=== PATIENT | male | born 1965 | race Caucasian/White ===

== ENCOUNTER 2023-05-09 19:52 | Inpatient (IN) | payer OTHER, SELFPAY ==
[2023-05-09 19:54] VITALS: BP 161/110; PULSE 77; RESP 16; TEMP 36.2; O2SAT 97; BMI 31.5
[2023-05-09 22:12] VITALS: BP 159/99; PULSE 73; RESP 16; O2SAT 97
[2023-05-09 22:30] LABS: Absolute Lymphocyte Count 3.76 X10^3/uL (0.83-4.51); Absolute Neutrophil Count 3.4 X10^3/uL (2.0-7.7); Basophil# 0.02 X10^3/uL; Basophil% 0.3 % (0-1); Eosinophil# 0.14 X10^3/uL; Eosinophils% 1.8 % (0-5); Hematocrit 44.9 % (40-54); Hemoglobin 15.1 g/dL (13.0-16.5); Lymphocyte # 3.76 X10^3/ul (0.83-4.51); Mean Corp Hgb Conc 33.6 g/dL (32-36); Mean Corpuscular Volume 89.1 fL (80-94); Mean Platelet Vol. 9.8 fl (6.2-12.0); Monocyte% 6.4 % (0-10); NRBC Flagged by Analyzer 0 % (0-5); Neutrophil # 3.39 X10^3/uL (2.7-7.7); Neutrophil % 43.1 % (47-70); Platelet Count 300 K/mm3 (150-450); RBC Distribution Width CV 13.6 % (11.6-14.6); Red Blood Count 5.04 M/mm3 (4.6-6.2); White Blood Count 7.8 K/mm3 (4.4-11.0)
--- NOTE | 2023-05-09 22:36 | EDS_ITS ---
HPI History of Present Illness Chief Complaint: Substance Abuse Narrative Narrative: Patient has a history of alcoholism. He has a history of liver cirrhosis, he has a transplant liver 2 years ago and he has been sober for 2 years although a few months ago he started drinking fireball's from a gas station. He tells me he messed up and wants detox. He has no other symptoms he did drink today. PFSH PFSH Medical History Alcohol abuse Home Medications fluorouracil 5 % topical cream 1 applic topical 05/09/23 [History Last Taken Unknown] ketoconazole 2 % topical cream 1 applic topical BID PRN ECZEMA 05/09/23 [History Last Taken Unknown] magnesium oxide 400 mg (241.3 mg magnesium) tablet 800 mg PO DAILY 05/09/23 [History Last Taken Unknown] mycophenolate mofetil 250 mg capsule 250 mg PO BID 05/09/23 [History Last Taken Unknown] omeprazole 20 mg capsule,delayed release 20 mg PO DAILY 05/09/23 [History Last Taken Unknown] tacrolimus 1 mg capsule, immediate-release 3 mg PO BID 05/09/23 [History Last Taken Unknown] Allergy/AdvReac Type Severity Reaction Status Date / Time Sulfa (Sulfonamide Allergy Mild Rash Verified 05/09/23 21:57 Antibiotics) Surgical History (Updated 05/09/23 @ 22:[address] Stanton Ely MD) History of bilateral knee replacement Liver transplant recipient Social History Smoking Status: Never smoker ROS ROS ED ROS Narrative Past medical history: Reviewed Medications: Reviewed Social history: Noncontributory Review of systems: All systems negative except as indicated General: No fever Eyes: No visual changes ENT: No upper airway congestion, normal voice Neck: No neck pain Cardiovascular: No chest pain Respiratory: No shortness of breath or cough Gastrointestinal: No abdominal pain, nausea vomiting or diarrhea Genitourinary: No dysuria Musculoskeletal: Denies myalgias no difficulty with ambulation Skin: No rash Neurological: No memory loss, confusion or any focal weakness EXAM Physical Exam Narrative Exam Narrative: Physical exam General: Well nourished, Well developed, No Acute Distress Head: Normocephalic, Atraumatic Eyes: Conjunctiva not pale ENT: Moist mucous membranes Neck: Supple, Nontender, No lymphadenopathy Cardiovascular: Regular rate, Regular rhythm Respiratory: No distress, CTA bilaterally Abdomen: Soft, Nontender, Nondistended Back: Nontender, Normal Inspection. Negative for: CVA tenderness Extremities: Nontender, No edema Skin: Normal color, No rash Neurological: Alert, Normal Strength, Normal Sensation Psychological: Slightly depressed. He seems remorseful. Const Vital Signs: 05/09/23 19:54 05/09/23 22:12 Temperature 97.1 F L Temperature Source Temporal Pulse Rate 77 73 Respiratory Rate 16 16 Blood Pressure 161/110 H 159/99 H Blood Pressure Mean 127 119 Pulse Ox 97 97 Oxygen Delivery Method Room Air Room Air MDM MDM MDM Narrative Medical decision making narrative: Patient will be medically cleared at this time he appears well at this time he is not tachycardic or he has any obvious withdrawal symptoms. I will attempt to admit him. Lab Data Labs: Laboratory Results - last 24 hr 05/09/23 22:10 WBC 7.8 RBC 5.04 Hgb 15.1 Hct 44.9 MCV 89.1 MCH 30.0 MCHC 33.6 RDW Std Deviation 44.0 H RDW Coeff of Darin 13.6 Plt Count 300 MPV 9.8 Immature Gran % (Auto) 0.400 Neut % (Auto) 43.1 L Lymph % (Auto) 48.0 H [place] % (Auto) 6.4 Eos % (Auto) 1.8 Baso % (Auto) 0.3 Absolute Neuts (auto) 3.4 Absolute Lymphs (auto) 3.76 Nucleated RBC % 0 Discharge Plan Triage Chief Complaint: Substance Abuse ED Provider: Stanton Ely Dx/Rx/DC Orders Clinical Impression: Alcohol addiction, Cirrhosis of liver, Liver transplanted Prescriptions: No Action fluorouracil 5 % cream 1 applic TOPICAL Patient Comments: APPLY TOPICALLY TO THE AFFECTED AREA TWICE DAILY magnesium oxide 400 mg (241.3 mg magnesium) tablet 800 mg PO DAILY ketoconazole 2 % cream 1 applic TOPICAL BID PRN (Reason: ECZEMA) Patient Comments: APPLY TOPICALLY TO THE AFFECTED AREA TWICE DAILY omeprazole 20 mg capsule,delayed release(DR/EC) 20 mg PO DAILY tacrolimus 1 mg capsule 3 mg PO BID Patient Comments: TAKE 3 CAPSULES BY MOUTH TWICE DAILY mycophenolate mofetil 250 mg capsule 250 mg PO BID Patient Comments: TAKE 2 CAPSULES BY MOUTH TWICE DAILY Primary Care Provider: KIARRA KENYON Referrals: KIARRA KENYON [Other] Disposition Disposition: Acute Care Hospital [facility]
[2023-05-09 22:47] LABS: AST(SGOT) 23 U/L (15-37); Alanine Aminotransfer ALT/SGPT 27 U/L (16-61); Albumin, Serum 3.7 g/dL (3.2-5.0); Alkaline Phosphatase 110 U/L (45-117); Anion Gap 9 (5-15); BUN 19 mg/dL (7-18); BUN/Creat Ratio 13.6 RATIO (10-20); Calcium,Total 8.5 mg/dL (8.5-10.1); Chloride 109 mmol/L (98-107); EST Glomerular Filtration Rate 55 mL/min (>60); Est Glom Filt Rate - Afr Amer 66 mL/min (>60); Estimated Creatinine Clearance 57.94 ml/min; Globulin 3.8 g/dL (2.2-4.2); Glucose 98 mg/dL (74-106); Potassium 3.6 mmol/L (3.5-5.1); Protein, Total 7.5 g/dL (6.4-8.2); Sodium Level 140 mmol/L (136-145)
[2023-05-09 22:57] VITALS: BP 140/94; PULSE 97; RESP 20; TEMP 36.7; O2SAT 100
--- NOTE | 2023-05-09 22:57 | HP.PCM.HOS_ITS ---
HPI - General General Date of Admission: 05/09/23 Date of Service: 05/09/23 Chief Complaint: EtOH abuse with request for detoxification. HPI Narrative The patient is a 58 y/o M w/ PMHx: EtOH abuse (sober x 2 years since liver transplant, started drinking again ~ 2 months, 1 pint fireball QD/QOD), GERD, Hx ESLD s/p liver transplant ~ 2 years prior at [facility] who presents to the [facility] ED on 05/09/23 with history of attempts to decrease by self however he has been unsuccessful secondary to alcohol withdrawal symptoms with mild tremors, nausea and tactile disturbances when he attempts with significant interest in obtaining sober status especially given his liver transplant prompting eventual ED evaluation. He denies any specific overt catalyst for his intake. He notes that his does not drink. Work-up in the ED included T97.1, heart 77, BP 161/110, respiratory rate 16, 97% room air, CBC with WBC 7.8, hemoglobin 15.1, platelet 300 without marked shift, CMP with chloride 109, BUN/creatinine 19/1.40, hepatic profile unremarkable, ethyl alcohol 176, urine drug screen pending upon request evaluation of patient. [facility] Medical History (Updated 05/09/23 @ 23:[address] Madison Weiss MD) Alcohol abuse GERD (gastroesophageal reflux disease) History of cirrhosis of liver Home Medications fluorouracil 5 % topical cream 1 applic topical 05/09/23 [History Last Taken Unknown] ketoconazole 2 % topical cream 1 applic topical BID PRN ECZEMA 05/09/23 [History Last Taken Unknown] magnesium oxide 400 mg (241.3 mg magnesium) tablet 800 mg PO DAILY 05/09/23 [History Last Taken Unknown] mycophenolate mofetil 250 mg capsule 250 mg PO BID 05/09/23 [History Last Taken Unknown] omeprazole 20 mg capsule,delayed release 20 mg PO DAILY 05/09/23 [History Last Taken Unknown] tacrolimus 1 mg capsule, immediate-release 3 mg PO BID 05/09/23 [History Last Taken Unknown] Allergy/AdvReac Type Severity Reaction Status Date / Time Sulfa (Sulfonamide Allergy Mild Rash Verified 05/09/23 21:57 Antibiotics) Family History (Updated 05/09/23 @ 22:[address] Madison Weiss MD) Mother Hypertension Cerebral hemorrhage Father Hypertension COPD (chronic obstructive pulmonary disease) Alcohol abuse Surgical History (Updated 05/09/23 @ 22:[address] Madison Weiss MD) History of bilateral knee replacement Liver transplant recipient Social History (Updated 05/09/23 @ 22:[address] Madison Weiss MD) household members: spouse Smoking Status: Never smoker alcohol intake: current alcohol intake frequency: 3 or more drinks per day details: ~ 2 month up to 1 pint fireball daily/QOD substance use type: does not use ROS ROS Narrative Admission Review of Systems: CONSTITUTIONAL: No weight loss, fever, chills, + weakness or fatigue. HEENT: Eyes: No visual loss, blurred vision, double vision or yellow sclerae. Ears, Nose, Throat: No hearing loss, sneezing, congestion, runny nose or sore throat. SKIN: No rash or itching, lesions, wounds. CARDIOVASCULAR: No chest pain, chest pressure or chest discomfort, palpitations, edema, orthopnea, syncopal events. RESPIRATORY: No shortness of breath, cough or sputum, wheezing, hemoptysis. GASTROINTESTINAL: + anorexia, nausea with withdrawal symptoms. Currently none nor any vomiting or diarrhea, abdominal pain, melena, BRBPR. GENITOURINARY: No dysuria, frequency, urgency or retention. NEUROLOGICAL: + tremors/tactile disturbances with withdrawal, currently none. No headache, dizziness, syncope, paralysis, ataxia, numbness or tingling in the ex tremities, focal weakness, change in bowel or bladder control, seizure. MUSCULOSKELETAL: No muscle, back pain, joint pain or stiffness. HEMATOLOGIC: No anemia, bleeding or bruising. LYMPHATICS: No enlarged nodes. No history of splenectomy. PSYCHIATRIC: No history of depression or anxiety. ENDOCRINOLOGIC: No reports of sweating, cold or heat intolerance. No polyuria or polydipsia. ALLERGIES: No history of asthma, hives, eczema or rhinitis. Vital Signs Vital Signs Vital Signs: 05/09/23 19:54 05/09/23 22:12 Temperature 97.1 F L Temperature Source Temporal Pulse Rate 77 73 Respiratory Rate 16 16 Blood Pressure 161/110 H 159/99 H Blood Pressure Mean 127 119 Pulse Ox 97 97 Oxygen Delivery Method Room Air Room Air Weight Weight: 220 lb Body Mass Index (BMI) 31.5 Physical Exam Narrative Physical Examination: General: Awake, alert, oriented x 3 and cooperative, seated upright in the ED bed, fatigued, denies any current severe withdrawal symptoms. Skin: Mildly flushed color, normal turgor, no icterus, no cyanosis. HEENT: AT/NC, EOMI, PERRLA, dry MM, no carotid bruits or JVD noted. Lungs: CTA bilaterally, moderate effort, mild decrease BL bases, no rales, ronchi or wheezing. Heart: Mildly tachycardic with regular rhythm; no gallop, rub audible. Abdomen: Soft, NTTP, ND, normal BS, status post liver transplant status of note. Extremities: No cyanosis, clubbing, or edema. Neurological: Patient awake, alert, oriented as noted, cognitive function intact; pupils equally reactive to light and accommodation, cranial nerves II- XII grossly normal, moving all 4 extremities, no focal deficits, denies any current tactile disturbances and no obvious tremors, strength mildly global dec reased. Psychiatric: Affect appears flat, fatigued, no acute evidence of depressive or anxiety feelings. Results Lab / Micro Data 05/09/23 22:10 05/09/23 22:10 Labs: Laboratory Results - last 24 hr 05/09/23 22:10: WBC 7.8, RBC 5.04, Hgb 15.1, Hct 44.9, MCV 89.1, MCH 30.0, MCHC 33.6, RDW Std Deviation 44.0 H, RDW Coeff of Darin 13.6, Plt Count 300, MPV 9.8, Immature Gran % (Auto) 0.400, Neut % (Auto) 43.1 L, Lymph % (Auto) 48.0 H, [place] % (Auto) 6.4, Eos % (Auto) 1.8, Baso % (Auto) 0.3, Absolute Neuts (auto) 3.4, Absolute Lymphs (auto) 3.76, Nucleated RBC % 0, Sodium 140, Potassium 3.6, Chloride 109 H, Carbon Dioxide 22.0, Anion Gap 9, BUN 19 H, Creatinine 1.40 H, Estim Creat Clear Calc 57.94, Est GFR (MDRD) Af Amer 66, Est GFR (MDRD) Non-Af 55 L, BUN/Creatinine Ratio 13.6, Glucose 98, Calcium 8.5, Total Bilirubin 1.00, AST 23, ALT 27, Alkaline Phosphatase 110, Total Protein 7.5, Albumin 3.7, Globulin 3.8, Albumin/Globulin Ratio 1.0 Assessment & Plan Assessment/Plan (1) Alcohol withdrawal: PLAN: Plan The patient is a 58 y/o M w/ PMHx: EtOH abuse (sober x 2 years since liver transplant, started drinking again ~ 2 months, 1 pint fireball QD/QOD), GERD, Hx ESLD s/p liver transplant ~ 2 years prior at [facility] who presents to the [facility] ED on 05/09/23 with history of attempts to decrease by self however he has been unsuccessful prompting ED evaluation for alcohol withdrawal treatment. #1. Acute EtOH Withdrawal: Will admit to [facility], routine labs obtained in the ED upon presentation with pending UDS. Given interest in sobriety, will initiate and continue on protocol with taper course of ativan given interactions of phenobarbital with his transplant medications, as needed gabapentin, Catapres, Bentyl, Vistaril, IV fluids, IV antiemetics, Tylenol as needed for pain. Will consult Case management for assistance for transition to next level of rehabil itation care. Mag, phos pending. Maintain on CIWA protocol concurrently. #2. Elevated BP without hypertensive diagnosis: Patient with elevated BP upon presentation possibly related with acute presentation #1, will continue to closely monitor and add regimen if appropriate, as needed IV hydralazine in interim. #3. History ESLD with history of alcoholic cirrhotic liver disease: Status post renal transplant status, will continue patient home tacrolimus as well as mycophenolate regimen, from current list not on any chronic prophylactic Bactrim with rash listed as allergy of note, encouraged patient to update his transplant team. #4. GERD: We will continue patient home PPI. #5. DVT prophylaxis: Low risk, encourage ambulation. Charges/Coding Visit Charges Inpatient E&M: 49687 Init Hosp L2
[2023-05-09 23:22] LABS: Magnesium 1.6 mg/dL (1.6-2.6); Phosphorus 2.4 mg/dL (2.5-4.9)
[2023-05-09 23:32] VITALS: BMI 32.5
[2023-05-09] MEDS: Lactated Ringers 1,000 ML 125 ML IV (23:53)
[2023-05-09 23:55] VITALS: BP 147/90; PULSE 65; RESP 17; TEMP 36.4; O2SAT 98
[2023-05-10] VITALS (7 sets, daily range): BP systolic 139–163; BP diastolic 83–110; PULSE 73–90; RESP 16–18; TEMP 36.7–37.1; O2SAT 95–99
[2023-05-10] MEDS: LORazepam 1 MG Tablet PO ×6 (00:03→20:17)
[2023-05-10] MEDS: traZODone 100 MG Tablet PO ×2 (00:04→20:18)
[2023-05-10] MEDS: hydrALAZINE 20 MG/ML Vial 10 MG IV (04:10)
--- NOTE | 2023-05-10 07:31 | PN.HOSP_ITS ---
Reason for Visit Reason for Visit: Diagnoses Alcohol use, unspecified with withdrawal, unspecified (05/09/23) Objective Data Objective Data Vital Signs: Vital Signs Temp Pulse Resp BP Pulse Ox O2 Del Method 98.2 F 77 17 163/110 H 95 Room Air 05/10/23 04:05 05/10/23 04:10 05/10/23 04:05 05/10/23 04:10 05/10/23 04:05 05/10/23 04:05 Oxygen Delivery Method Room Air Weight: 227 lb 1.218 oz Body Mass Index (BMI) 32.5 Intake & Output: Intake and Output for Last 24 Hours 05/08/23 05/09/23 05/10/23 23:59 23:59 23:59 Intake Total 260 / 260 Balance 260 / 260 Lab / Micro Data 05/09/23 22:10 05/09/23 22:10 Labs: Laboratory Results - last 24 hr 05/09/23 22:10: WBC 7.8, RBC 5.04, Hgb 15.1, Hct 44.9, MCV 89.1, MCH 30.0, MCHC 33.6, RDW Std Deviation 44.0 H, RDW Coeff of Darin 13.6, Plt Count 300, MPV 9.8, Immature Gran % (Auto) 0.400, Neut % (Auto) 43.1 L, Lymph % (Auto) 48.0 H, [place] % (Auto) 6.4, Eos % (Auto) 1.8, Baso % (Auto) 0.3, Absolute Neuts (auto) 3.4, Absolute Lymphs (auto) 3.76, Nucleated RBC % 0, Sodium 140, Potassium 3.6, Chloride 109 H, Carbon Dioxide 22.0, Anion Gap 9, BUN 19 H, Creatinine 1.40 H, Estim Creat Clear Calc 57.94, Est GFR (MDRD) Af Amer 66, Est GFR (MDRD) Non-Af 55 L, BUN/Creatinine Ratio 13.6, Glucose 98, Calcium 8.5, Phosphorus 2.4 L, Magnesium 1.6, Total Bilirubin 1.00, AST 23, ALT 27, Alkaline Phosphatase 110, Total Protein 7.5, Albumin 3.7, Globulin 3.8, Albumin/Globulin Ratio 1.0, Ethyl Alcohol 176.0 Physical Exam Narrative Seen and examined. Patient has history of alcoholic cirrhosis status post liver transplant. He was sober then started drinking alcohol 1 month back. Patient has insight and knows the consequences of alcohol intact with loss of liver allograft. Physical exam General: Alert, Oriented x3, Cooperative HEENT: Atraumatic, PERRLA, EOMI, Normocephalic Oral: Oral mucosa dry. No Gingival or Mucosal Lesions/ Ulcerations Neck: Supple, No JVD, Negative Carotid Bruits Lungs: Air entry diminished in bilateral lung bases. No crepitation/rhonchi Cardiovascular: Regular rate, Regular Rhythm, Normal S1, Normal S2, No murmurs Abdomen: By costal margin surgical scar previous liver transplant surgery. Bowel Sounds Present, Soft, Non Tender, Non-Distended : No renal angle tenderness. No suprapubic tenderness. Extremities: No edema, Capillary Refill Less than 3 Seconds Skin: No rashes, No breakdown Musculoskeletal: No Tenderness to Palpation of Joints or Extremities Neurological: Cranial nerves II-XII grossly intact, DTR 2+/4. No acute focal neurological deficit. Psych/Mental Status: Flat affect. Assessment & Plan Assessment/Plan (1) Alcohol withdrawal: QUALIFIERS: Complication of substance-induced condition: uncomplicated Qualified Code(s): F10.930 - Alcohol use, unspecified with withdrawal, uncomplicated PLAN: Plan The patient is a 58 y/o M w/ PMHx: EtOH abuse (sober x 2 years since liver transplant, started drinking again ~ 2 months, 1 pint fireball QD/QOD), GERD, Hx ESLD s/p liver transplant ~ 2 years prior at [facility] who presents to the [facility] ED on 05/09/23 #1. Acute EtOH Withdrawal: The patient is admitted to [facility]. Patient on phenobarbital based order set along with other adjunctive medications as needed for alcohol withdrawal symptom control. CIWA monitor. b2b sales manager consulted. K3.6. Low normal. Hypophosphatemia. Serum magnesium normal. Serum alcohol level 176. U tox screen negative. Discussed with the case making machine operator David to update the [facility] psychotherapist social worker/liver transplant team about relapse in alcohol intake Is started on Neutra-Phos. #2. Elevated BP without hypertensive diagnosis: Patient with elevated BP upon presentation possibly related with acute presentation #1, will continue to closely monitor and add regimen if appropriate, as needed IV hydralazine in interim. #3. History ESLD with history of alcoholic cirrhotic liver disease: Status post renal transplant status, will continue patient home tacrolimus as well as mycophenolate regimen, BUNs/creatinine 19/1.4. ALT AST alkaline phosphatase which total bilirubin normal limit. Serum albumin 3.7. Monitor liver functions Kidney function. #4. GERD: continue patient home PPI. #5. DVT prophylaxis: Low risk, encourage ambulation. Charges/Coding Visit Charges Inpatient E&M: 53000 Subs Hosp L2
[2023-05-10] MEDS: Thiamine Hydrochloride 100 MG Tablet PO (08:12)
[2023-05-10] MEDS: Pantoprazole Sodium 20 MG Tablet PO (08:12)
[2023-05-10] MEDS: Folic Acid 1 MG Tablet PO (08:12)
[2023-05-10] MEDS: Magnesium Chloride 64 MG Delay Rel.Tablet 128 MG PO ×2 (08:12→20:18)
[2023-05-10] MEDS: 0.9% Saline Lock 10 ML Syringe IV (08:12)
[2023-05-10] MEDS: Tacrolimus Anhydrous 1 MG Capsule 3 MG PO ×2 (08:13→20:19)
[2023-05-10] MEDS: Mycophenolate Mofetil 250 MG Capsule PO ×2 (08:13→20:18)
[2023-05-10 08:53] LABS: Bacteria 0 SEEN /hpf (None Seen); Mucous, Urine 0 SEEN /hpf (<or=2+); Red Blood Cells-Urine 0 SEEN /hpf (0-5); Squamous Epithelial Cells - UA 0 SEEN /hpf (0-5); White Blood Cells 0 SEEN /hpf (0-5)
[2023-05-10 09:01] LABS: Color, Urine Yellow (Yellow); Glucose, Dipstick Normal (Normal); Ketone-Dipstick Negative (Negative); Leukocyte Esterase-Dipstick Negative /ul (Negative); Nitrite-Dipstick Negative (Negative); Occult Blood-Urine Negative /ul (Negative); Protein-Dipstick 15 mg/dl (Negative); Specific Gravity, Urine 1.025 (1.002-1.030); Urine Bilirubin Dipstick Negative (Negative); Urine Clarity Clear (Clear); Urine Urobilinogen Normal (Normal)
[2023-05-10 09:12] LABS: Amphetamine Urine VISTA NEGATIVE (<1000 ng/mL); Barbiturate Urine VISTA NEGATIVE (< 200 ng/mL); Benzodiazepine Urine VISTA NEGATIVE (< 200 ng/mL); Cocaine Urine VISTA NEGATIVE (< 300 ng/mL); Ecstacy Urine VISTA NEGATIVE (< 500 ng/mL); Methadone Urine VISTA NEGATIVE (< 300 ng/mL); PCP Urine VISTA NEGATIVE (< 25 ng/mL); THC Urine VISTA NEGATIVE (< 50 ng/mL); Vista UDS pH Range 4
[2023-05-10] MEDS: Na Biphos/Potassium Phosphate PACKET 1 PACKET PO ×2 (16:51→20:19)
[2023-05-11] VITALS (8 sets, daily range): BP systolic 115–164; BP diastolic 71–95; PULSE 55–92; RESP 16–18; TEMP 36.4–37; O2SAT 95–98
[2023-05-11] MEDS: LORazepam 1 MG Tablet PO ×6 (00:34→20:30)
[2023-05-11] MEDS: Na Biphos/Potassium Phosphate PACKET 1 PACKET PO ×3 (05:01→20:32)
[2023-05-11] MEDS: hydrALAZINE 20 MG/ML Vial 10 MG IV (05:07)
[2023-05-11] MEDS: 0.9% Saline Lock 10 ML Syringe IV (05:07)
[2023-05-11 06:18] LABS: Absolute Lymphocyte Count 2.28 X10^3/uL (0.83-4.51); Absolute Neutrophil Count 3.3 X10^3/uL (2.0-7.7); Basophil# 0.01 X10^3/uL; Basophil% 0.2 % (0-1); Eosinophil# 0.19 X10^3/uL; Eosinophils% 3.1 % (0-5); Hematocrit 40.5 % (40-54); Hemoglobin 13.6 g/dL (13.0-16.5); Lymphocyte # 2.28 X10^3/ul (0.83-4.51); Lymphocyte % 36.7 % (19-41); Mean Corp Hgb Conc 33.6 g/dL (32-36); Mean Corpuscular Hgb 30.3 pg (27.0-32.0); Mean Corpuscular Volume 90.2 fL (80-94); Mean Platelet Vol. 10.2 fl (6.2-12.0); Monocyte# 0.44 X10^3/uL; Monocyte% 7.1 % (0-10); NRBC Flagged by Analyzer 0 % (0-5); Neutrophil # 3.28 X10^3/uL (2.7-7.7); Neutrophil % 52.7 % (47-70); Platelet Count 236 K/mm3 (150-450); RBC Distribution Width CV 13.3 % (11.6-14.6); RBC Distribution Width SD 44.7 fl (35.1-43.9); Red Blood Count 4.49 M/mm3 (4.6-6.2); White Blood Count 6.2 K/mm3 (4.4-11.0)
[2023-05-11 06:52] LABS: ALB/GLOB Ratio 0.9 RATIO (0.9-2.4); AST(SGOT) 16 U/L (15-37); Alanine Aminotransfer ALT/SGPT 22 U/L (16-61); Albumin, Serum 2.9 g/dL (3.2-5.0); Alkaline Phosphatase 100 U/L (45-117); Anion Gap 5 (5-15); BUN 25 mg/dL (7-18); BUN/Creat Ratio 20.3 RATIO (10-20); Calcium,Total 8.2 mg/dL (8.5-10.1); Chloride 110 mmol/L (98-107); Creatinine, Serum 1.23 mg/dL (0.70-1.30); EST Glomerular Filtration Rate 64 mL/min (>60); Est Glom Filt Rate - Afr Amer 77 mL/min (>60); Estimated Creatinine Clearance 65.94 ml/min; Globulin 3.3 g/dL (2.2-4.2); Glucose 111 mg/dL (74-106); Magnesium 1.7 mg/dL (1.6-2.6); Potassium 3.9 mmol/L (3.5-5.1); Protein, Total 6.2 g/dL (6.4-8.2); Sodium Level 140 mmol/L (136-145)
[2023-05-11] MEDS: Folic Acid 1 MG Tablet PO (08:31)
[2023-05-11] MEDS: Thiamine Hydrochloride 100 MG Tablet PO (08:32)
[2023-05-11] MEDS: Magnesium Chloride 64 MG Delay Rel.Tablet 128 MG PO ×2 (10:36→20:32)
[2023-05-11] MEDS: Mycophenolate Mofetil 250 MG Capsule PO ×2 (10:36→20:33)
[2023-05-11] MEDS: Tacrolimus Anhydrous 1 MG Capsule 3 MG PO ×2 (10:37→20:33)
[2023-05-11] MEDS: Pantoprazole Sodium 20 MG Tablet PO (10:37)
--- NOTE | 2023-05-11 15:19 | PN.HOSP_ITS ---
Reason for Visit Reason for Visit: Diagnoses Alcohol use, unspecified with withdrawal, uncomplicated (05/09/23) Alcohol use, unspecified with withdrawal, unspecified (05/09/23) Objective Data Objective Data Vital Signs: Vital Signs Temp Pulse Resp BP Pulse Ox O2 Del Method 97.9 F 92 16 115/71 98 Room Air 05/11/23 12:42 05/11/23 12:42 05/11/23 12:42 05/11/23 12:42 05/11/23 12:42 05/11/23 12:42 Oxygen Delivery Method Room Air Weight: 227 lb 1.218 oz Body Mass Index (BMI) 32.5 Intake & Output: Intake and Output for Last 24 Hours 05/09/23 05/10/23 05/11/23 23:59 23:59 23:59 Intake Total 2059 Balance 2059 Lab / Micro Data 05/11/23 05:50 05/11/23 05:50 Labs: Laboratory Results - last 24 hr 05/11/23 05:50: WBC 6.2, RBC 4.49 L, Hgb 13.6, Hct 40.5, MCV 90.2, MCH 30.3, MCHC 33.6, RDW Std Deviation 44.7 H, RDW Coeff of Darin 13.3, Plt Count 236, MPV 10.2, Immature Gran % (Auto) 0.200, Neut % (Auto) 52.7, Lymph % (Auto) 36.7, [place] % (Auto) 7.1, Eos % (Auto) 3.1, Baso % (Auto) 0.2, Absolute Neuts (auto) 3.3, Absolute Lymphs (auto) 2.28, Nucleated RBC % 0, Sodium 140, Potassium 3.9, Chloride 110 H, Carbon Dioxide 25.0, Anion Gap 5, BUN 25 H, Creatinine 1.23, Estim Creat Clear Calc 65.94, Est GFR (MDRD) Af Amer 77, Est GFR (MDRD) Non-Af 6 4, BUN/Creatinine Ratio 20.3 H, Glucose 111 H, Calcium 8.2 L, Phosphorus 3.0, Magnesium 1.7, Total Bilirubin 0.90, AST 16, ALT 22, Alkaline Phosphatase 100, Total Protein 6.2 L, Albumin 2.9 L, Globulin 3.3, Albumin/Globulin Ratio 0.9 Physical Exam Narrative Seen and examined. No acute issues overnight. Patient has history of alcoholic cirrhosis status post liver transplant. He was sober then started drinking alcohol 1 month back. Patient has insight and knows the consequences of alcohol intact with loss of liver allograft. Physical exam General: Alert, Oriented x3, Cooperative HEENT: Atraumatic, PERRLA, EOMI, Normocephalic Oral: Oral mucosa dry. No Gingival or Mucosal Lesions/ Ulcerations Neck: Supple, No JVD, Negative Carotid Bruits Lungs: Air entry diminished in bilateral lung bases. No crepitation/rhonchi Cardiovascular: Regular rate, Regular Rhythm, Normal S1, Normal S2, No murmurs Abdomen: By costal margin surgical scar previous liver transplant surgery. Bowel Sounds Present, Soft, Non Tender, Non-Distended : No renal angle tenderness. No suprapubic tenderness. Extremities: No edema, Capillary Refill Less than 3 Seconds Skin: No rashes, No breakdown Musculoskeletal: No Tenderness to Palpation of Joints or Extremities Neurological: Cranial nerves II-XII grossly intact, DTR 2+/4. No acute focal neurological deficit. Psych/Mental Status: Flat affect. Assessment & Plan Assessment/Plan (1) Alcohol withdrawal: QUALIFIERS: Complication of substance-induced condition: uncomplicated Qualified Code(s): F10.930 - Alcohol use, unspecified with withdrawal, uncomplicated PLAN: Plan The patient is a 58 y/o M w/ PMHx: EtOH abuse (sober x 2 years since liver transplant, started drinking again ~ 2 months, 1 pint fireball QD/QOD), GERD, Hx ESLD s/p liver transplant ~ 2 years prior at [facility] who presents to the [facility] ED on 05/09/23 #1. Acute EtOH Withdrawal: The patient is admitted to [facility]. Patient on phenobarbital based order set along with other adjunctive medications as needed for alcohol withdrawal symptom control. CIWA monitor. life sciences manager consulted. K3.6. Low normal. Hypophosphatemia. Serum magnesium normal. Serum alcohol level 176. U tox screen negative. Discussed with the case checker David to update the [facility] social work professor/liver transplant team about relapse in alcohol intake Is started on Neutra-Phos. 05/11: Serum magnesium 1.7, serum phosphorus 3.0. Potassium 3.9.Continue potassium replacement. #2. Elevated BP without hypertensive diagnosis: Patient with elevated BP upon presentation possibly related with acute presentation #1, will continue to closely monitor and add regimen if appropriate, as needed IV hydralazine in interim. #3. History ESLD with history of alcoholic cirrhotic liver disease: Status post liver transplant status, continue patient home tacrolimus as well as mycophenolate regimen, BUNs/creatinine 19/1.4. ALT AST alkaline phosphatase which total bilirubin normal limit. Serum albumin 3.7. Monitor liver functions 05/11: liver chemistry normal limit except low albumin and total protein. #4. GERD: continue patient home PPI. #5. DVT prophylaxis: Low risk, encourage ambulation. Charges/Coding Visit Charges Inpatient E&M: 61239 Subs Hosp L2
[2023-05-12] MEDS: LORazepam 1 MG Tablet PO ×4 (00:08→14:15)
[2023-05-12 02:41] VITALS: BP 150/90; PULSE 69; RESP 16; TEMP 36.7; O2SAT 96
[2023-05-12] MEDS: Na Biphos/Potassium Phosphate PACKET 1 PACKET PO (04:19)
[2023-05-12 05:44] LABS: Absolute Lymphocyte Count 2.06 X10^3/uL (0.83-4.51); Absolute Neutrophil Count 4.5 X10^3/uL (2.0-7.7); Basophil# 0.01 X10^3/uL; Basophil% 0.1 % (0-1); Eosinophil# 0.21 X10^3/uL; Eosinophils% 2.9 % (0-5); Hematocrit 40.7 % (40-54); Hemoglobin 13.2 g/dL (13.0-16.5); Lymphocyte # 2.06 X10^3/ul (0.83-4.51); Lymphocyte % 28.5 % (19-41); Mean Corp Hgb Conc 32.4 g/dL (32-36); Mean Corpuscular Hgb 29.8 pg (27.0-32.0); Mean Corpuscular Volume 91.9 fL (80-94); Mean Platelet Vol. 10.2 fl (6.2-12.0); Monocyte# 0.48 X10^3/uL; Monocyte% 6.6 % (0-10); NRBC Flagged by Analyzer 0 % (0-5); Neutrophil # 4.46 X10^3/uL (2.7-7.7); Neutrophil % 61.6 % (47-70); Platelet Count 237 K/mm3 (150-450); RBC Distribution Width CV 13.2 % (11.6-14.6); RBC Distribution Width SD 43.7 fl (35.1-43.9); Red Blood Count 4.43 M/mm3 (4.6-6.2); White Blood Count 7.2 K/mm3 (4.4-11.0)
[2023-05-12 06:19] LABS: ALB/GLOB Ratio 0.9 RATIO (0.9-2.4); AST(SGOT) 13 U/L (15-37); Alanine Aminotransfer ALT/SGPT 19 U/L (16-61); Albumin, Serum 2.8 g/dL (3.2-5.0); Alkaline Phosphatase 88 U/L (45-117); Anion Gap 4 (5-15); BUN 23 mg/dL (7-18); BUN/Creat Ratio 18.9 RATIO (10-20); Calcium,Total 8.1 mg/dL (8.5-10.1); Chloride 109 mmol/L (98-107); Creatinine, Serum 1.22 mg/dL (0.70-1.30); EST Glomerular Filtration Rate 64 mL/min (>60); Est Glom Filt Rate - Afr Amer 78 mL/min (>60); Estimated Creatinine Clearance 66.48 ml/min; Globulin 3.2 g/dL (2.2-4.2); Glucose 107 mg/dL (74-106); Potassium 4.1 mmol/L (3.5-5.1); Sodium Level 139 mmol/L (136-145)
[2023-05-12 07:52] VITALS: O2SAT 94
[2023-05-12 08:41] VITALS: BP 132/81; PULSE 62; RESP 16; TEMP 36.7; O2SAT 96
[2023-05-12] MEDS: Folic Acid 1 MG Tablet PO (08:46)
[2023-05-12] MEDS: Magnesium Chloride 64 MG Delay Rel.Tablet 128 MG PO (08:46)
[2023-05-12] MEDS: Pantoprazole Sodium 20 MG Tablet PO (08:47)
[2023-05-12] MEDS: Thiamine Hydrochloride 100 MG Tablet PO (08:47)
[2023-05-12] MEDS: Tacrolimus Anhydrous 1 MG Capsule 3 MG PO (08:47)
[2023-05-12] MEDS: Mycophenolate Mofetil 250 MG Capsule PO (08:47)
--- NOTE | 2023-05-12 10:15 | DCINST_ITS ---
Discharge Instructions Diet Discharge Diet: No restrictions Activity Discharge Activity: Return to Normal Activity Weight Bearing Status: Weight bearing as tolerated Dressing / Incision Call your doctor if you observe: Fever of 101 or Higher, Coldness, Increased Pain, Numbness or Tingling, Change in Color, Inability to urinate, Inability to have a bowel movement, Shortness of breath, Dizziness, Fainting spells, Swelling in the ankles, Chest pain, Prolonged hiccupping, Increased palpitations (irregular heartbeat) and Calf discomfort Follow Up Care When: IN 2 WEEKS Test Results: Test results from this visit will be discussed in further detail at your follow- up appointment, if applicable. Discharge Plan Admission Admit Date/Time: 05/09/23 23:05 Attending Provider: Nick Su Primary Care Provider: KIARRA KENYON Consulting Providers: Madison Weiss Discharge Orders/Prescriptions Prescriptions: New thiamine HCl (vitamin B1) [Vitamin B-1] 100 mg Tablet 100 mg PO DAILYCM Qty: 30 2RF folic acid 1 mg Tablet 1 mg PO DAILY@0800 30 Days Qty: 30 2RF Continued fluorouracil 5 % cream 1 applic TOPICAL BID PRN Patient Comments: APPLY TOPICALLY TO THE AFFECTED AREA TWICE DAILY magnesium oxide 400 mg (241.3 mg magnesium) tablet 400 mg PO DAILY ketoconazole 2 % cream 1 applic TOPICAL BID PRN (Reason: ECZEMA) Patient Comments: APPLY TOPICALLY TO THE AFFECTED AREA TWICE DAILY omeprazole 20 mg capsule,delayed release(DR/EC) 20 mg PO DAILY tacrolimus 1 mg capsule 3 mg PO BID Patient Comments: TAKE 3 CAPSULES BY MOUTH TWICE DAILY mycophenolate mofetil 250 mg capsule 250 mg PO BID Patient Comments: TAKE 2 CAPSULES BY MOUTH TWICE DAILY Referrals / Follow Up: KIARRA KENYON [Other] KIARRA KENYON [Other] Disposition Disposition (needs filled in before D/C Order can be placed): Home, Self Care
--- NOTE | 2023-05-12 12:33 | DS.PCM_ITS ---
Providers Date of Admission: 05/09/23 Date of Discharge: 05/12/23 Primary Care Physician: KIARRA KENYON Reason For Visit: ETOH WITHDRAWAL Diagnosis Discharge Diagnosis (1) Alcohol withdrawal: Status: Acute Code(s): F10.939 - Alcohol use, unspecified with withdrawal, unspecified Qualifiers: Complication of substance-induced condition: uncomplicated Qualified Code(s): F10.930 - Alcohol use, unspecified with withdrawal, uncomplicated Plan The patient is a 58 y/o M w/ PMHx: EtOH abuse (sober x 2 years since liver transplant, started drinking again ~ 2 months, 1 pint fireball QD/QOD), GERD, Hx ESLD s/p liver transplant ~ 2 years prior at [facility] who presents to the [facility] ED on 05/09/23 #1. Acute EtOH Withdrawal: The patient is admitted to [place]. Patient on phenobarbital based order set along with other adjunctive medications as needed for alcohol withdrawal symptom control. CIWA monitor. change release manager consulted. K3.6. Low normal. Hypophosphatemia. Serum magnesium normal. Serum alcohol level 176. U tox screen negative. Discussed with the rn case management David to update the [facility] social work professor/liver transplant team about relapse in alcohol intake Is started on Neutra-Phos. 05/11: Serum magnesium 1.7, serum phosphorus 3.0. Potassium 3.9.Continue potassium replacement. 05/12: Serum potassium normal. Liver chemistry shows low albumin otherwise normal limit. Patient withdrawal symptoms have resolved. Patient wants to go home. Patient was counseled to quit alcohol. #2. Elevated BP without hypertensive diagnosis: Patient with elevated BP upon presentation possibly related with acute alcohol withdrawal. 05/12: Blood pressure is in normal limits at 132/81. Follow with PCP for BP either ambulatory or home BP monitoring to diagnose hypertension. #3. History ESLD with history of alcoholic cirrhotic liver disease: Status post liver transplant status, continue patient home tacrolimus as well as mycophenolate regimen, BUNs/creatinine 19/1.4. ALT AST alkaline phosphatase which total bilirubin normal limit. Serum albumin 3.7. Monitor liver functions 05/11: liver chemistry normal limit except low albumin and total protein. #4. GERD: continue patient home PPI. #5. DVT prophylaxis: Low risk, encourage ambulation. Discharge medication reconciliation done. Discharge follow-up instructions completed. Discharge process discussed with the patient and all questions were answered to patient's satisfaction. Total time spent, exact 35 minutes on discharge meds reconciliation, examination, coordination of care with nurses and ancillary staff, review of imaging and blood test and discussion with the patient on follow-up instructions. Medications at Discharge Home Medications fluorouracil 5 % topical cream 1 applic topical BID PRN skin rash 05/09/23 ketoconazole 2 % topical cream 1 applic topical BID PRN ECZEMA 05/09/23 magnesium oxide 400 mg (241.3 mg magnesium) tablet 400 mg PO DAILY mineral 05/09/23 mycophenolate mofetil 250 mg capsule 250 mg PO BID liver transplant 05/09/23 omeprazole 20 mg capsule,delayed release 20 mg PO DAILY stomach 05/09/23 tacrolimus 1 mg capsule, immediate-release 3 mg PO BID liver transplant 05/09/23 folic acid 1 mg tablet 1 mg PO DAILY@0800 30 days #30 tabs 05/12/23 thiamine HCl (vitamin B1) 100 mg tablet (Vitamin B-1) 100 mg PO DAILYCM #30 tabs 05/12/23 Physical Exam Narrative Seen and examined. No acute issues overnight. Patient wants to go home. Patient has history of alcoholic cirrhosis status post liver transplant. He was sober then started drinking alcohol 1 month back. Patient has insight and knows the consequences of alcohol intact with loss of liver allograft. Physical exam General: Alert, Oriented x3, Cooperative HEENT: Atraumatic, PERRLA, EOMI, Normocephalic Oral: Oral mucosa dry. No Gingival or Mucosal Lesions/ Ulcerations Neck: Supple, No JVD, Negative Carotid Bruits Lungs: Air entry diminished in bilateral lung bases. No crepitation/rhonchi Cardiovascular: Regular rate, Regular Rhythm, Normal S1, Normal S2, No murmurs Abdomen: By costal margin surgical scar previous liver transplant surgery. Bowel Sounds Present, Soft, Non Tender, Non-Distended : No renal angle tenderness. No suprapubic tenderness. Extremities: No edema, Capillary Refill Less than 3 Seconds Skin: No rashes, No breakdown Musculoskeletal: No Tenderness to Palpation of Joints or Extremities Neurological: Cranial nerves II-XII grossly intact, DTR 2+/4. No acute focal neurological deficit. Psych/Mental Status: Flat affect. Weight / BMI Weight Weight: 227 lb 1.218 oz Body Mass Index (BMI) 32.5 ABG / Lab / Microbiology Data 05/12/23 05:12 05/12/23 05:12 Laboratory: Laboratory Results - last 24 hr 05/12/23 05:12: WBC 7.2, RBC 4.43 L, Hgb 13.2, Hct 40.7, MCV 91.9, MCH 29.8, MCHC 32.4, RDW Std Deviation 43.7, RDW Coeff of Darin 13.2, Plt Count 237, MPV 10.2, Immature Gran % (Auto) 0.300, Neut % (Auto) 61.6, Lymph % (Auto) 28.5, [place] % (Auto) 6.6, Eos % (Auto) 2.9, Baso % (Auto) 0.1, Absolute Neuts (auto) 4.5, Absolute Lymphs (auto) 2.06, Nucleated RBC % 0, Sodium 139, Potassium 4.1, Chloride 109 H, Carbon Dioxide 26.0, Anion Gap 4 L, BUN 23 H, Creatinine 1.22, Estim Creat Clear Calc 66.48, Est GFR (MDRD) Af Amer 78, Est GFR (MDRD) Non-Af 64, BUN/Creatinine Ratio 18.9, Glucose 107 H, Calcium 8.1 L, Total Bilirubin 0.70, AST 13 L, ALT 19, Alkaline Phosphatase 88, Total Protein 6.0 L, Albumin 2.8 L, Globulin 3.2, Albumin/Globulin Ratio 0.9 D/C Instructions Discharge Diet: No restrictions Weight Bearing Status: Weight bearing as tolerated Call your doctor if you observe: Fever of 101 or Higher, Coldness, Increased Pain, Numbness or Tingling, Change in Color, Inability to urinate, Inability to have a bowel movement, Shortness of breath, Dizziness, Fainting spells, Swelling in the ankles, Chest pain, Prolonged hiccupping, Increased palpitations (irregular heartbeat) and Calf discomfort When: IN 2 WEEKS Meaningful Use Info Meaningful Use Diagnoses (Choose all that apply): None applicable Discharge Plan Admission Admit Date/Time: 05/09/23 23:05 Attending Provider: Nick Su Primary Care Provider: KIARRA KENYON Consulting Providers: Madison Weiss Discharge Orders/Prescriptions Prescriptions: New thiamine HCl (vitamin B1) [Vitamin B-1] 100 mg Tablet 100 mg PO DAILYCM Qty: 30 2RF folic acid 1 mg Tablet 1 mg PO DAILY@0800 30 Days Qty: 30 2RF Continued fluorouracil 5 % cream 1 applic TOPICAL BID PRN Patient Comments: APPLY TOPICALLY TO THE AFFECTED AREA TWICE DAILY magnesium oxide 400 mg (241.3 mg magnesium) tablet 400 mg PO DAILY ketoconazole 2 % cream 1 applic TOPICAL BID PRN (Reason: ECZEMA) Patient Comments: APPLY TOPICALLY TO THE AFFECTED AREA TWICE DAILY omeprazole 20 mg capsule,delayed release(DR/EC) 20 mg PO DAILY tacrolimus 1 mg capsule 3 mg PO BID Patient Comments: TAKE 3 CAPSULES BY MOUTH TWICE DAILY mycophenolate mofetil 250 mg capsule 250 mg PO BID Patient Comments: TAKE 2 CAPSULES BY MOUTH TWICE DAILY Referrals / Follow Up: KIARRA KENYON [Other] KIARRA KENYON [Other] Disposition Disposition (needs filled in before D/C Order can be placed): Home, Self Care Charges/Coding Visit Charges Inpatient E&M: 54183 Disch Hosp >30min
[2023-05-12 14:25] VITALS: BP 128/82; PULSE 66; RESP 18; TEMP 36.7; O2SAT 68
== END 2023-05-12 15:20 | disposition home or self-care (01) | DRG 897 ==
LOC: ED 22:39 → MS3 05-10 02:28
PROVIDERS: Admitting Provider Family Medicine; Emergency Provider Emergency Medicine; Visit Provider Internal Medicine
DX: F10.239 Alcohol dependence with withdrawal, unspecified (principal); Z94.4 Liver transplant status; K21.9 Gastro-esophageal reflux disease without esophagitis; Y90.6 Blood alcohol level of 120-199 mg/100 ml; R03.0 Elevated blood-pressure reading, without diagnosis of hypertension; Z79.899 Other long term (current) drug therapy; Z96.653 Presence of artificial knee joint, bilateral
CPT/HCPCS: 36415; 80053; 80307; 81001; 82077; 83735; 84100; 85025; 99284; J7120; A4216